=== PATIENT | female | born 2000 | race Two or more races ===

== ENCOUNTER 2024-10-04 08:29 | Emergency (ER) | payer OTHER ==
[~2024-10-04] VITALS: Ht 142.2 cm; Wt 54.9 kg
[2024-10-04] MEDS ORDERED: ONDANSETRON HCL 2 MG/ML VIAL IM ONE (09:00)
[2024-10-04] MEDS ORDERED: FAMOtidine 10 MG/ML (4ML VIAL) IV PUSH ONE (09:00)
[2024-10-04 09:57] LABS: HEMATOCRIT 43.5 % (36.0-45.00); HEMOGLOBIN 14.9 g/dL (12.0-15.00); MEAN CELL VOLUME 90.7 fL (80.00-100.00); MEAN CORPUSCULAR HEMOGLOBIN 31.1 pg (27.00-32.0); MEAN CORPUSCULAR HGB CONC 34.3 g/dl (32.0-36.0); PLATELET COUNT 251 K/uL (150-450); RED CELL DISTRIBUTION WIDTH 13.5 % (11.5-14.5)
[2024-10-04] MEDS ORDERED: ZOFRAN8 MG PO (11:35)
[2024-10-04 12:30] VITALS: BP 107/70; O2SAT 100
== END 2024-10-04 12:31 | disposition home or self-care (01) ==
LOC: ER 08:31
PROVIDERS: General Practice
DX: O21.9 Vomiting of pregnancy, unspecified (principal); Z3A.00 Weeks of gestation of pregnancy not specified; Z20.822 Contact with and (suspected) exposure to COVID-19